=== PATIENT | male | born 1965 | race African-American/Black ===

== ENCOUNTER 2019-07-20 13:39 | Outpatient (CLI) | payer MEDICAID ==
[~2019-07-20] VITALS: Ht 185.4 cm; Wt 90.7 kg
[2019-07-20 15:26] VITALS: BP 128/82
[2019-07-20] MEDS ORDERED: cholesterol med (15:26)
--- NOTE | 2019-07-20 16:59 | Consultation ---
DATE OF CONSULTATION: 07/20/2019 CONSULTING PHYSICIAN: Rakesh Simpson M.D. CHIEF COMPLAINT: Referral for screening colonoscopy. PAST MEDICAL HISTORY: Allergic rhinitis, hypercholesteremia. PAST SURGICAL HISTORY: None. MEDICATION: Cholesterol medication. FAMILY HISTORY: Noncontributory. SOCIAL HISTORY: The patient denies any tobacco, alcohol, or drug abuse. PHYSICAL EXAMINATION: VITAL SIGNS: The patient is afebrile. Blood pressure is 128/82, pulse 66, respirations 20, height is 61, weight is 208. HEENT: Normocephalic and atraumatic. Sclerae anicteric. NECK: Supple. No evidence of obvious lymphadenopathy. CARDIOVASCULAR: Regular rate and rhythm. Plus S1 and S2. LUNGS: Clear to auscultation bilaterally. ABDOMEN: Positive bowel sounds. Soft and nontender. No rebound. No guarding. No peritoneal sign. EXTREMITIES: No cyanosis, no clubbing, no edema. ASSESSMENT AND PLAN: This is a 54-year-old male, referred for screening colonoscopy. The patient was given instruction for colonoscopy. Risks and benefits of procedure were clearly explained to him. Prep was given to him. We are going to go ahead and schedule him when authorization is obtained. Rakesh Simpson M.D. DR: EVELYN JOB#: [id number] CC:
== END 2019-07-20 15:39 | disposition home or self-care (01) ==
LOC: PAN 13:39
DX: Z00.00 Encounter for general adult medical examination without abnormal findings (principal); E78.00 Pure hypercholesterolemia, unspecified; Z79.899 Other long term (current) drug therapy
CPT/HCPCS: G0463

== ENCOUNTER 2020-01-04 12:44 | Outpatient (CLI) | payer MEDICAID ==
[~2020-01-04 12:44] MED LIST: cholesterol med
[2020-01-04 12:55] VITALS: BP 131/89
--- NOTE | 2020-01-04 13:24 | General Progress Note ---
Assessment/Plan Assessment/Plan: s/p colonoscopy hemorrhoids repeat colon in 5 years Subjective ROS Limited/Unobtainable: Yes Allergies: Coded Allergies: No Known Allergies (Unverified , 07/20/19) Objective Last 24 Hour Vital Signs Date Time Temp Pulse Resp B/P (MAP) Pulse Ox O2 Delivery O2 Flow Rate FiO2 01/04/20 12:55 98.2 59 16 131/89 (103) 99 General Appearance: no apparent distress EENT: normal ENT inspection Neck: normal alignment Cardiovascular: normal rate Respiratory/Chest: lungs clear Abdomen: normal bowel sounds, non tender, soft Rakesh Simpson MD Jan 04, 2020 13:24
== END 2020-01-04 14:44 | disposition home or self-care (01) ==
LOC: PAN 12:44
DX: K64.9 Unspecified hemorrhoids (principal)
CPT/HCPCS: 99212